=== PATIENT | female | born 1980 ===

== ENCOUNTER 2017-04-10 09:17 | Emergency (ER) | payer BC ==
[2017-04-10 09:25] VITALS: BP 139/66; PULSE 74; TEMP 96; O2SAT 100
[2017-04-10 09:26] VITALS: BMI 32.9
--- NOTE | 2017-04-10 09:52 | ED PDOC ---
HPI: Female Pain Time Seen by Provider: 04/10/17 09:47 Chief Complaint (Nursing): Female Genitourinary History Per: Patient Onset/Duration Of Symptoms: Days (2) Current Symptoms Are (Timing): Still Present Severity: Mild Pain Scale Rating Of: 2 Quality Of Discomfort: Cramping Associated Symptoms: denies: Urinary Symptoms Additional Complaint(s): Vaginal spotting assoc with lower abd cramping x 2 days. LMP 6 weeks ago Abnormal Vaginal Bleeding: Yes Past Medical History Vital Signs: Last Vital Signs Temp 96 F L 04/10/17 09:24 Pulse 74 04/10/17 09:24 Resp BP 139/66 04/10/17 09:24 Pulse Ox 100 04/10/17 09:24 - Medical History PMH: No Chronic Diseases - Family History Family History: States: Unknown Family Hx - Allergies Allergies/Adverse Reactions: Allergies Allergy/AdvReac Type Severity Reaction Status Date / Time Unobtainable Allergy Verified 04/10/17 09:49 Review of Systems Constitutional: Negative for: Fever Gastrointestinal: Positive for: Abdominal Pain Genitourinary Female: Positive for: Vaginal Bleeding. Negative for: Dysuria, Frequency Musculoskeletal: Negative for: Back Pain Physical Exam - Physical Exam Appears: Positive for: Non-toxic, No Acute Distress Skin: Positive for: Normal Color, Warm, DRY Gastrointestinal/Abdominal: Positive for: Bowel Sounds, Soft. Negative for: Tenderness Pelvic Exam: Positive for: External Exam Normal, No Masses, Blood (Scant blood) , Other (Cervix closed). Negative for: Tender Adnexa, Tender Uterus Extremity: Positive for: Normal ROM Neurologic/Psych: Positive for: Alert, Oriented - Laboratory Results Result Diagrams: 04/10/17 10:20 - ECG O2 Sat by Pulse Oximetry: 100 Disposition - Clinical Impression Clinical Impression: Threatened miscarriage - Patient ED Disposition Is Patient to be Admitted: No Counseled Patient/Family Regarding: Studies Performed, Diagnosis, Need For Followup - Disposition [facility] Disposition: Routine/Home Disposition Time: 13:24 Condition: FAIR Instructions: Threatened Miscarriage (ED) Forms: [employer] (Mauritian)
[2017-04-10 10:57] LABS: BASO # 0.1 K/uL (0.0-0.2); BASO % 0.7 % (0.0-2.0); EOS # 0.1 K/uL (0.0-0.7); EOS % 0.7 % (0.0-4.0); HEMATOCRIT 37.6 % (34.0-47.0); LYMPH # 2.1 K/uL (1.0-4.3); LYMPH % 18.2 % (20.0-40.0); MEAN CELL VOLUME 88.2 fl (81.0-99.0); MEAN CORPUSCULAR HEMOGLOBIN 30.7 pg (27.0-31.0); MEAN CORPUSCULAR HGB CONC 34.8 g/dL (33.0-37.0); MEAN PLATELET VOLUME 8.5 fl (7.2-11.7); MONO # 0.9 K/uL (0.0-0.8); MONO % 7.6 % (0.0-10.0); NEUT # 8.6 K/uL (1.8-7.0); NEUT % 72.8 % (50.0-75.0); NRBC % 0.1 % (0.0-0.0); RED CELL DISTRIBUTION WIDTH 13.6 % (11.5-14.5); WHITE BLOOD COUNT 11.8 K/uL (4.8-10.8)
--- NOTE | 2017-04-10 13:11 | US ---
PROCEDURE: OB Pelvic Ultrasound HISTORY: r/o ectopic COMPARISON: None available. FINDINGS: UTERUS: Gestational sac: Single intrauterine gestational sac. Yolk sac is visualized. age (Ultrasound estimated): Gestational sac is small for estimation of gestational age. Tara-gestational hemorrhage: None. Uterus measures 10.4 x 5.5 x 5.9 cm. Normal in size and appearance. CERVIX: Long and closed. No cervical abnormality seen. RIGHT OVARY: Measures 2.6 x 1.3 x 2.7 cm. No mass lesion. Normal flow. LEFT OVARY: Measures 4.1 x 1.6 x 2.7 cm. No solid mass. Normal flow. FREE FLUID: None. OTHER FINDINGS: None. IMPRESSION: Single early intrauterine gestational sac, small in size for accurate estimation of gestational age. Yolk sac is visualized. Follow-up imaging is recommended to confirm viability. No adnexal mass or free fluid in the pelvis.
== END 2017-04-10 14:17 | disposition home or self-care (01) ==
LOC: H.ER 09:17
DX: O20.0 Threatened abortion (principal)